=== PATIENT | female | born 1995 | race Caucasian/White ===

== ENCOUNTER 2017-12-16 07:19 | Inpatient (IN) | payer BC ==
[2017-12-16] MEDS ORDERED: ZOLPIDEM 5 MG TAB PO (08:30)
[2017-12-16] MEDS: DOCUSATE SODIUM 100 MG CAP PO ×2 (08:53→20:29)
[2017-12-16] MEDS: HYDROCODONE/APAP (5/325) TAB PO (08:56)
[2017-12-16] MEDS: SOD CHLORIDE 0.9% 1,000 ML IV ×3 (08:56→17:05)
[2017-12-16] MEDS: CEFTRIAXONE 1 GM/50 ML (PMX) 50 ML IVPB ×3 (08:56→22:56)
[2017-12-16] MEDS: ONDANSETRON 4 MG INJ IV ×3 (11:04→20:31)
[2017-12-16] MEDS: morphine 2 MG INJ IV ×3 (11:09→20:30)
[2017-12-16] MEDS: ACETAMINOPHEN 325 MG TAB PO (16:11)
[2017-12-17] MEDS: SOD CHLORIDE 0.9% 1,000 ML IV ×4 (01:58→19:42)
[2017-12-17] MEDS: morphine 2 MG INJ IV ×4 (01:58→19:42)
[2017-12-17] MEDS: ONDANSETRON 4 MG INJ IV ×4 (01:58→19:42)
[2017-12-17 05:17] LABS: ADD MAN DIFF? NO
[2017-12-17 05:20] LABS: BASOPHILS % 0.4 % (0.0-2.0); EOSINOPHILS # 0.1 10^3/ul (0.0-0.5); EOSINOPHILS % 0.9 % (0.0-7.0); HEMATOCRIT 35.1 % (37.0-47.0); HEMOGLOBIN 11.4 g/dl (12.0-16.0); LYMPHOCYTES # 1.2 10^3/ul (0.8-2.9); LYMPHOCYTES % 11.1 % (15.0-51.0); MEAN CORPUSCULAR HEMOGLOBIN 30.9 pg (29.0-33.0); MEAN CORPUSCULAR HGB CONC 32.5 g/dl (32.0-37.0); MEAN CORPUSCULAR VOLUME 95.1 fl (82.0-101.0); MEAN PLATELET VOLUME 9.3 fl (7.4-10.4); MONOCYTE # 1.1 10^3/ul (0.3-0.9); MONOCYTES % 9.9 % (0.0-11.0); NEUTROPHIL # 8.7 10^3/ul (1.6-7.5); NEUTROPHILS % 77.2 % (39.0-77.0); PLATELET COUNT 264 10^3/UL (140-415); RED BLOOD COUNT 3.69 10^6/ul (4.20-5.40); RED CELL DISTRIBUTION WIDTH 12.6 % (11.5-14.5)
[2017-12-17 05:20] LABS: WHITE BLOOD COUNT 11.2 10^3/ul (4.8-10.8)
[2017-12-17 05:46] LABS: ALANINE AMINOTRANSFERASE 22 IU/L (13-69); ALBUMIN 3.2 g/dl (3.3-4.9); ALKALINE PHOSPHATASE 60 IU/L (42-121); ANION GAP 13 (8-16); ASPARTATE AMINO TRANSFERASE 16 IU/L (15-46); BILIRUBIN,INDIRECT 0.4 mg/dl (0-1.1); BILIRUBIN,TOTAL 0.4 mg/dl (0.2-1.3); BLOOD UREA NITROGEN 8 mg/dl (7-20); CALCIUM 8.6 mg/dl (8.4-10.2); CARBON DIOXIDE 23 mmol/L (21-31); CHLORIDE 108 mmol/L (97-110); CREATININE 0.79 mg/dl (0.44-1.00); GLUCOSE 75 mg/dl (70-220); MAGNESIUM 1.8 mg/dl (1.7-2.5); PHOSPHORUS 2.7 mg/dl (2.5-4.9); POTASSIUM 3.9 mmol/L (3.5-5.1); SODIUM 140 mmol/L (135-144); TOTAL PROTEIN 6.1 g/dl (6.1-8.1)
[2017-12-17] MEDS: DOCUSATE SODIUM 100 MG CAP PO ×2 (07:57→19:42)
[2017-12-17] MEDS ORDERED: BISACODYL (EC) 5 MG TAB PO (11:00)
[2017-12-17] MEDS: POLYETHYLENE GLYCOL 17 GM PACKET PO ×2 (11:07→19:42)
[2017-12-17] MEDS: HYDROCODONE/APAP (5/325) TAB PO (12:41)
[2017-12-17] MEDS: CEFTRIAXONE 1 GM/50 ML (PMX) 50 ML IVPB (22:50)
[2017-12-18] MEDS: ONDANSETRON 4 MG INJ IV ×3 (01:46→14:43)
[2017-12-18] MEDS: morphine 2 MG INJ IV ×3 (01:46→14:42)
[2017-12-18] MEDS: SOD CHLORIDE 0.9% 1,000 ML IV ×4 (03:02→19:44)
[2017-12-18 07:18] LABS: WHITE BLOOD COUNT 6.5 10^3/ul (4.8-10.8)
[2017-12-18 07:18] LABS: ADD MAN DIFF? NO; BASOPHILS % 0.6 % (0.0-2.0); EOSINOPHILS # 0.2 10^3/ul (0.0-0.5); EOSINOPHILS % 2.8 % (0.0-7.0); HEMATOCRIT 32.1 % (37.0-47.0); HEMOGLOBIN 10.6 g/dl (12.0-16.0); LYMPHOCYTES # 1.8 10^3/ul (0.8-2.9); LYMPHOCYTES % 27.5 % (15.0-51.0); MEAN CORPUSCULAR HEMOGLOBIN 30.5 pg (29.0-33.0); MEAN CORPUSCULAR VOLUME 92.2 fl (82.0-101.0); MEAN PLATELET VOLUME 8.9 fl (7.4-10.4); MONOCYTE # 0.7 10^3/ul (0.3-0.9); NEUTROPHIL # 3.7 10^3/ul (1.6-7.5); NEUTROPHILS % 57.2 % (39.0-77.0); PLATELET COUNT 265 10^3/UL (140-415); RED BLOOD COUNT 3.48 10^6/ul (4.20-5.40); RED CELL DISTRIBUTION WIDTH 12.3 % (11.5-14.5)
[2017-12-18 07:40] LABS: ANION GAP 8 (8-16); BLOOD UREA NITROGEN 7 mg/dl (7-20); CALCIUM 8.6 mg/dl (8.4-10.2); CARBON DIOXIDE 24 mmol/L (21-31); CHLORIDE 112 mmol/L (97-110); GLUCOSE 71 mg/dl (70-220); POTASSIUM 3.9 mmol/L (3.5-5.1); SODIUM 140 mmol/L (135-144)
[2017-12-18 07:45] LABS: MAGNESIUM 1.6 mg/dl (1.7-2.5)
[2017-12-18 07:45] LABS: PHOSPHORUS 3.6 mg/dl (2.5-4.9)
[2017-12-18] MEDS: POLYETHYLENE GLYCOL 17 GM PACKET PO ×2 (08:24→19:39)
[2017-12-18] MEDS: DOCUSATE SODIUM 100 MG CAP PO ×2 (08:24→19:38)
[2017-12-18] MEDS: MAGNESIUM CHLORIDE (SR) 64 MG TAB PO (15:29)
[2017-12-18] MEDS ORDERED: CEPASTAT LOZENGE MT (15:30)
[2017-12-18] MEDS: HYDROCODONE/APAP (5/325) TAB PO (19:38)
[2017-12-18] MEDS: CEFTRIAXONE 1 GM/50 ML (PMX) 50 ML IVPB (22:45)
[2017-12-19] MEDS: HYDROCODONE/APAP (5/325) TAB PO ×3 (01:55→14:17)
[2017-12-19 05:49] LABS: ADD MAN DIFF? NO
[2017-12-19 06:03] LABS: WHITE BLOOD COUNT 4.9 10^3/ul (4.8-10.8)
[2017-12-19 06:03] LABS: BASOPHILS % 0.6 % (0.0-2.0); EOSINOPHILS # 0.2 10^3/ul (0.0-0.5); EOSINOPHILS % 4.5 % (0.0-7.0); HEMATOCRIT 31.5 % (37.0-47.0); HEMOGLOBIN 10.5 g/dl (12.0-16.0); LYMPHOCYTES # 1.7 10^3/ul (0.8-2.9); MEAN CORPUSCULAR HEMOGLOBIN 30.7 pg (29.0-33.0); MEAN CORPUSCULAR HGB CONC 33.3 g/dl (32.0-37.0); MEAN CORPUSCULAR VOLUME 92.1 fl (82.0-101.0); MEAN PLATELET VOLUME 9.3 fl (7.4-10.4); MONOCYTE # 0.7 10^3/ul (0.3-0.9); MONOCYTES % 13.4 % (0.0-11.0); NEUTROPHIL # 2.2 10^3/ul (1.6-7.5); NEUTROPHILS % 45.5 % (39.0-77.0); PLATELET COUNT 300 10^3/UL (140-415); RED BLOOD COUNT 3.42 10^6/ul (4.20-5.40); RED CELL DISTRIBUTION WIDTH 12.1 % (11.5-14.5)
[2017-12-19 06:40] LABS: MAGNESIUM 1.5 mg/dl (1.7-2.5)
[2017-12-19 06:40] LABS: PHOSPHORUS 4.4 mg/dl (2.5-4.9)
[2017-12-19 06:47] LABS: ANION GAP 11 (8-16); BLOOD UREA NITROGEN 8 mg/dl (7-20); CALCIUM 8.2 mg/dl (8.4-10.2); CARBON DIOXIDE 26 mmol/L (21-31); CHLORIDE 109 mmol/L (97-110); CREATININE 0.61 mg/dl (0.44-1.00); GLUCOSE 98 mg/dl (70-220); POTASSIUM 3.5 mmol/L (3.5-5.1); SODIUM 142 mmol/L (135-144)
[2017-12-19] MEDS: POLYETHYLENE GLYCOL 17 GM PACKET PO (09:00)
[2017-12-19] MEDS: DOCUSATE SODIUM 100 MG CAP PO (09:00)
[2017-12-19] MEDS: SOD CHLORIDE 0.9% 1,000 ML IV ×2 (09:08→18:31)
[2017-12-19] MEDS: MAGNESIUM SULFATE 3 GM in DEXTROSE 5% 100 ML IVPB (12:21)
[2017-12-19] MEDS: ONDANSETRON 4 MG INJ IV (14:14)
[2017-12-19] MEDS: CEFTRIAXONE 1 GM/50 ML (PMX) 50 ML IVPB (23:16)
[2017-12-19] MEDS: traMADol 50 MG TAB PO (23:16)
[2017-12-20] MEDS: SOD CHLORIDE 0.9% 1,000 ML IV ×2 (02:20→09:00)
[2017-12-20] MEDS: traMADol 50 MG TAB PO ×2 (08:17→14:35)
[2017-12-20 12:25] LABS: IRON 44 ug/dl (35-150)
[2017-12-20 12:25] LABS: MAGNESIUM 1.6 mg/dl (1.7-2.5)
[2017-12-20 12:34] LABS: ANION GAP 8 (8-16); CALCIUM 9.1 mg/dl (8.4-10.2); CARBON DIOXIDE 29 mmol/L (21-31); CHLORIDE 107 mmol/L (97-110); CREATININE 0.52 mg/dl (0.44-1.00); GLUCOSE 97 mg/dl (70-220); POTASSIUM 3.6 mmol/L (3.5-5.1); SODIUM 140 mmol/L (135-144)
[2017-12-20 12:35] LABS: % IRON SATURATION 18 % SAT (22-52); TOTAL IRON BINDING CAPACITY 246 ug/dl (241-421)
[2017-12-20 12:37] LABS: BLOOD UREA NITROGEN 3 mg/dl (7-20)
[2017-12-20] MEDS: ONDANSETRON 4 MG INJ IV (15:20)
== END 2017-12-20 16:07 | disposition home or self-care (01) | DRG 872 ==
LOC: PP2 07:19
DX: A41.9 Sepsis, unspecified organism (principal); N10 Acute pyelonephritis; R11.2 Nausea with vomiting, unspecified; K59.00 Constipation, unspecified
CPT/HCPCS: 80048; 80053; 83540; 83735; 84100; 85025; 87086